=== PATIENT | female | born 1950 | race Asian ===

== ENCOUNTER 2020-05-31 13:55 | Emergency (ER) | payer OTHER ==
[~2020-05-31] VITALS: Ht 157.5 cm; Wt 50.0 kg
[2020-05-31] MEDS ORDERED: PHENYLEPHRINE HCL IN 0.9% NACL 400 MCG/10 ML SYRINGE IVP ONE (14:15)
[2020-05-31] MEDS ORDERED: 0.9% SODIUM CHLORIDE 10 ML SYRINGE IVP PRN (14:15)
[2020-05-31] MEDS ORDERED: NOREPINEPHRINE 4 MG/D5%-WATER 250 ML IV ONE (14:15)
[2020-05-31] MEDS ORDERED: DEXA4 PO (14:17)
[2020-05-31] MEDS ORDERED: ACET-66 PO (14:17)
[2020-05-31] MEDS ORDERED: CALC1CAP22 PO (14:17)
[2020-05-31] MEDS ORDERED: ALBU8HFA IH (14:17)
[2020-05-31] MEDS ORDERED: HYDR-4061 PO (14:17)
[2020-05-31] MEDS ORDERED: AMLO2.5T96 PO (14:17)
[2020-05-31] MEDS ORDERED: NABU500T3 PO (14:17)
[2020-05-31] MEDS ORDERED: LEVO75 PO (14:17)
[2020-05-31] MEDS ORDERED: NORT10 PO (14:17)
[2020-05-31] MEDS ORDERED: POTA-92 PO (14:17)
[2020-05-31] MEDS ORDERED: [UNRECOGNIZED DRUG - CODE] (14:17)
[2020-05-31] MEDS ORDERED: ONDA-104 PO (14:17)
[2020-05-31] MEDS ORDERED: SODIUM CHLORIDE 0.9% 1,500 ML IV ONE (15:04)
[2020-05-31 15:18] LABS: ABG BASE EXCESS -12.9 mmol/L (-2.0-3.0); ABG CARBOXYHEMOGLOBIN 0.3 % (0.0-1.5); ABG HCO3 15.3 mmol/L (22.0-26.0); ABG METHEMOGLOBIN 0.5 % (0.0-1.5); ABG OXYGEN CONTENT 12.6 mL/dL (15.0-23.0); ABG OXYGEN SATURATION 99.4 % (95.0-98.0); ABG OXYHEMOGLOBIN 98.6 % (94.0-100.0); ABG PCO2 19 mmHg (35-45); ABG PH 7.412 (7.35-7.450); ABG TOTAL HEMOGLOBIN 8.2 G/dL (12.0-18.0); O2 DEVICE,BLOOD GAS NON REBREATHER (ROOM AIR); PO2, ARTERIAL BG 424.2 mmHg (79.0-87.0); SITE, BLOOD GAS RT RADIAL; SOURCE, BLOOD GAS ARTERIAL
[2020-05-31] MEDS ORDERED: NOREPINEPHRINE 4 MG/D5%-WATER 250 ML IV PRN (15:18)
[2020-05-31 15:22] LABS: HEMATOCRIT 28.7 % (36-46); HEMOGLOBIN 9.2 g/dL (12.0-16.0); MEAN CORPUSCULAR HGB CONC 31.9 G/dL (31.0-37.0); MEAN CORPUSCULAR VOLUME 72 fL (80-100); PLATELET COUNT (AUTO) 102 K/uL (150-450); RED BLOOD CELL COUNT(AUTO) 3.98 MIL/uL (4.00-5.20); RED CELL DISTRIBUTION WIDTH 14.6 % (11.5-14.5)
[2020-05-31] MEDS ORDERED: PIPERACILLIN/TAZO 3.375 GM/D5W 50 ML IV ONE (15:30)
[2020-05-31 15:44] LABS: BAND NEUTROPHILS % (MANUAL) 21 % (0-5); LYMPHOCYTES % (MANUAL) 7 % (22-44); METAMYELOCYTES % 1 % (0-0); MONOCYTES % (MANUAL) 4 % (2-9); SEGMENTED NEUTROPHILS % 67 % (40-70)
[2020-05-31 15:45] LABS: PLATELET MORPHOLOGY COMMENT GIANT PLTS PRESENT; WBC MORPHOLOGY TOXIC VACUOLATION
[2020-05-31 15:50] LABS: B-TYPE NATRIURETIC PEPTIDE 274 pg/mL (0-100)
[2020-05-31] MEDS ORDERED: VANCOMYCIN HCL 1 GM/D5% WATER 200 ML IV ONE (16:00)
[2020-05-31 16:14] LABS: APPEARANCE,URINE TURBID (CLEAR); GLUCOSE, URINE (UA) NEGATIVE (NEGATIVE); KETONES,URINE NEGATIVE (NEGATIVE); LEUKOCYTE ESTERASE ,URINE LARGE (NEGATIVE); OCCULT BLOOD,URINE LARGE (NEGATIVE); PROTEIN,URINE POS 1+ (NEGATIVE)
[2020-05-31 16:16] LABS: ANION GAP 16 mmol/L (8-16); CALCIUM, TOTAL 7.1 mg/dL (8.8-10.5); CARBON DIOXIDE 16 mmol/L (22-29); CHLORIDE 103 mmol/L (98-107); CREATININE 2.37 mg/dL (0.60-1.30); GLOMERULAR FILTR. RATE CALC 20 mL/min (>60); GLUCOSE,RANDOM 174 mg/dL (70-110); POTASSIUM 5.1 mmol/L (3.5-5.1); SODIUM SERUM 135 mmol/L (136-145); UREA NITROGEN, BLOOD 89 mg/dL (7-18)
[2020-05-31 16:17] LABS: BILIRUBIN,URINE PRELIM. POSITIVE (NEGATIVE)
[2020-05-31 16:21] LABS: D-DIMER 17.24 mg/L FEU (0.00-0.50); PROTHROMBIN TIME 10.2 SEC (9.4-11.6)
[2020-05-31 16:30] LABS: NITRATE,URINE POSITIVE (NEGATIVE)
[2020-05-31 16:31] LABS: BACTERIA,URINE Many /HPF (None Seen)
[2020-05-31 16:34] LABS: ALANINE AMINOTRANSFERASE 42 U/L (12-78); ALBUMIN 1.8 g/dL (3.4-5.0); ALKALINE PHOSPHATASE 115 U/L (46-116); ASPARTATE AMINOTRANSFERASE 32 U/L (15-37); BILIRUBIN,TOTAL 0.6 mg/dL (0.1-1.0); C-REACTIVE PROTEIN QUANT 11.95 mg/dL (0.00-0.30); FERRITIN 166 ng/mL (8-252); LACTATE DEHYDROGENASE 332 U/L (81-234); LIPASE 109 U/L (73-393); THYROID STIMULATING HORMONE 0.25 uIU/mL (0.36-3.74); TOTAL PROTEIN, SERUM 6.2 g/dL (6.4-8.2)
[2020-05-31 16:46] LABS: COVID AG,FIA SOURCE NASOPHARYNGEAL
[2020-05-31 17:16] LABS: LACTIC ACID 5.4 mmol/L (0.4-2.0)
[2020-05-31] MEDS ORDERED: PIPERACILLIN SODIUM/TAZOBACTAM 2.25 GM in DEXTROSE 5%-WATER 50 ML IV SCH (18:00)
[2020-05-31] MEDS ORDERED: AZITHROMYCIN 500 MG/NS 250 ML IV ONE (18:30)
[2020-05-31] MEDS ORDERED: ACETAMINOPHEN 650 MG RECTAL SUPPOSITORY PR ONE (18:45)
[2020-05-31] MEDS ORDERED: SODIUM CHLORIDE 0.9% 1,000 ML IV ONE (20:15)
[2020-05-31 22:49] VITALS: BP 139/70
== END 2020-05-31 23:09 | disposition short-term general hospital (02) ==
LOC: EMS 14:09
DX: A41.9 Sepsis, unspecified organism (principal); R65.21 Severe sepsis with septic shock; N39.0 Urinary tract infection, site not specified; N17.9 Acute kidney failure, unspecified; R33.9 Retention of urine, unspecified; C90.00 Multiple myeloma not having achieved remission; I10 Essential (primary) hypertension; E03.9 Hypothyroidism, unspecified; Z88.8 Allergy status to other drugs, medicaments and biological substances; Z79.899 Other long term (current) drug therapy; Z51.11 Encounter for antineoplastic chemotherapy; Z20.828 Contact with and (suspected) exposure to other viral communicable diseases
CPT/HCPCS: 36415; 36556; 36600; 51702; 71045; 80053; 81001; 82728; 82805; 83605; 83615; 83690; 83735; 83880; 84100; 84439; 84443; 84484; 85025; 85379; 85610; 85730; 86140; 86850; 86900; 86901; 87040; 87077; 87086; 87186; 87205; 87426; 93005; 96365; 96366; 96367; 96368; 99291; 99292; J0456; J2543; J3370; J3490; J7030; U0003; J7060